=== PATIENT | male | born 1945 | race Caucasian/White ===

== ENCOUNTER → 2019-11-25 | Day surgery (SDC) | payer MEDICARE ==
--- NOTE | 2019-11-23 09:32 | Diagnostic Imaging Report ---
EXAMINATION: CHEST 2 VIEWS INDICATION: Pre-operative COMPARISON: None FINDINGS: LINES/TUBES:None LUNGS:The lungs are mildly hyperinflated. No focal consolidation or pulmonary edema. Unchanged mildly increased interstitial markings. PLEURA:No pleural effusion or pneumothorax. MEDIASTINUM:The cardiomediastinal silhouette appears unchanged in size and shape. Atherosclerotic calcifications of the thoracic aorta. BONES/SOFT TISSUES:No acute osseous injury. ABDOMEN:No free air under the diaphragm. IMPRESSION: Mildly hyperinflated lungs. No focal pneumonia or pulmonary edema. Signed by: Shadi Alcaraz MD on 11/23/2019 9:30 AM
[~2019-11-25] MED LIST: ACETAMINOPHEN 1000 MG/100 ML IV ONE; ASPIR 8181 MG PO; ASTAXANTHIN4 MG PO; ATORVASTATIN CA20 MG PO; AZELASTINE137 MCG/0.; BUPIVACAINE 0.5%/EPI 30 ML SDV INJ ONE; CEFAZOLIN SOD 1 GM/NS 50ML 100 ML IV ONE; CLARITIN-D 241 EACH PO; CLOPIDOGREL75 MG PO; DEXAMETHASONE SOD PHOS INJ 4 MG/ML VIAL ONE; EPHEDRINE SULFATE INJ 50 MG/ML VIAL ONE; FENTANYL CITRATE/PF 100MCG/2 ML INJ ONE; KETOROLAC TROMETHAMINE 30 MG/ML VIAL ONE; KRILL OIL500 MG PO; LIDOCAINE HCL 2% LOCAL INJ 5 ML SDV VIAL INJ ONE; MULTIVITAMINS1 EAC7 PO; MYRBETRIQ25 MG PO; NASACORT16.9 ML INH; ONDANSETRON HCL INJ 2MG/ML 2ML 2 MG/ML VIAL ONE; PEPCID20 MG PO; PROPOFOL IV EMULSION 10 MG/ML 20 ML VIAL ONE; QVAR REDIHALE10.6 G1 INH; SEVOFLURANE INHAL SOLN 250 ML PEN BTL ONE; VENTOLIN HFA18 GM INH
--- OUTSIDE RECORDS SUMMARY | 2019-11-25 05:55 | XMS REPORT ---
Author [facility] Address Unknown Phone Unavailable Care Team Providers Care Single Fold Machine Operator Name Role Phone YUDELKA DU Unavailable Unavailable Payers Payer Name Policy Type Policy Number Effective Date Expiration Date Problems This patient has no known problems. Allergies, Adverse Reactions, Alerts Allergy Name Allergy Type Status Severity Reaction(s) Onset Date Inactive Date Treating Clinician Comments No Known Allergies DA Active U 2018-09-28 00:00:00 Medications This patient has no known medications. Results Test Description Test Time Test Comments Text Results Atomic Results Result Comments CHEST 2 VIEWS 2019-11-23 09:28:00 [place] [address] Patient Name: SAMIA LUEVANO V MR #: [id number] : 1945 Age/Sex: 74/M Req #: [id number] Adm Physician: Ordered by: YUDELKA DU MD Report #: [id number] Location: OR Room/Bed: Procedure: [id number] DX/CHEST 2 VIEWS Exam Date: 11/23/19 Exam Time: 0850 REPORT STATUS: Signed EXAMINATION: CHEST 2 VIEWS INDICATION: Pre-operative COMPARISON: None FINDINGS: LINES/TUBES:None LUNGS:The lungs are mildly hyperinflated. No focal consolidation or pulmonary edema. Unchanged mildly increased interstitial markings. PLEURA:No pleural effusion or pneumothorax. MEDIASTINUM:The cardiomediastinal silhouette appears unchanged in size and shape. Atherosclerotic calcifications of the thoracic aorta. BONES/SOFT TISSUES:No acute osseous injury. ABDOMEN:No free air under the diaphragm. IMPRESSION: Mildly hyperinflated lungs. No focal pneumonia or pulmonary edema. Signed by: Pham Alcaraz MD on 11/23/2019 9:30 AM Dictated By: PHAM ALCARAZ MD 9 Transcribed By: CAROL on 11/23/19929 COPY TO: YUDELKA DU MD
--- NOTE | 2019-11-25 07:05 | NUR ---
SPIRITUAL CARE - Pre-Surgery Assessment: Pt in bed. Pt's at bedside. Pt reported supportive attention from family and friends. Intervention: I provided pastoral presence, hospitality, and sympathetic listening. I acquainted pt with availability of mortar man while hospitalized. Outcome: Pt expressed appreciation for visit. No need for follow up indicated at this time. LORAINE Colindreslain Spiritual Care Department O: [phone] Pager: [phone] ([phone] number calling from)
[2019-11-25 09:57] VITALS: BP 110/64
--- NOTE | 2019-11-28 00:42 | Operative Report ---
DATE OF PROCEDURE: 11/25/2019 SURGEON: Paul Adams MD PREOPERATIVE DIAGNOSES: Right knee medial meniscus tear, right knee degenerative joint disease. POSTOPERATIVE DIAGNOSES: Right knee medial meniscus tear, right knee lateral meniscus tear, right knee degenerative joint disease. OPERATIONS AND PROCEDURES PERFORMED: The patient underwent right knee examination under anesthesia, right knee arthroscopy, right knee partial medial meniscectomy, right knee partial lateral meniscectomy, right knee chondroplasty of the patella, the trochlea, the medial femoral condyle, medial tibial plateau, the lateral femoral condyle, the lateral tibial plateau. DEICER KIT ASSEMBLER: DAKSHA Michelle ANESTHESIA: General endotracheal intubation anesthesia. IV FLUIDS: Per the anesthesia record. BRIEF DESCRIPTION OF THE PATIENT'S OPERATIVE PROCEDURE: Mr. Herrera was taken to the operating room, placed in the supine position on the operating table. Following induction of general anesthesia as well as endotracheal intubation, the patient's right lower extremity was examined under anesthesia. He was found to have a mild effusion within the joint, but otherwise ligamentously stable knee. The patient's lower extremity was prepped and draped in standard surgical fashion. A two-port technique was used to provide this patient arthroscopic evaluation of the joint. Examination of suprapatellar pouch, medial and lateral gutters found no evidence of loose bodies. There was, however, evidence of chondromalacia of the patella and trochlear surfaces. The scope was advanced to medial compartment. Examination of the medial compartment demonstrated a torn medial meniscus. There was also chondromalacia of the articulating surfaces. The tear was noted to be at the posterior root and the undersurface of the posterior horn of the medial meniscus. A combination of biting forceps and motorized shaver was used to resect the torn portion of the meniscus. Chondroplasties of the medial femoral condyle and medial tibial plateau were performed at this time. Scope was advanced to the intercondylar notch and the anterior cruciate ligament was identified and found to be intact. Scope was advanced to lateral compartment and a lateral meniscal tear was identified. There was also chondromalacia of the articulating surfaces. A combination of biting forceps and motorized shaver was used to resect the torn portion of the meniscus. Chondroplasties of the lateral femoral condyle and lateral tibial plateau were performed at this time. Scope was advanced to patella pouch and chondroplasties of the patella and trochlea were performed. The knee was deflated with sterile normal saline. Each of the portal sites were closed using 4-0 nylon suture. The portal sites as well as knee itself were injected with 0.5% Marcaine with epinephrine. Sterile dressings were applied and the patient was awakened and taken to postanesthesia care unit in stable condition. MD AYLEEN Traylor/ERICK /[id number]
== END | disposition home or self-care (01) ==
LOC: OR 05:49
PROVIDERS: ATTEND Specialist
DX: S83.221A Peripheral tear of medial meniscus, current injury, right knee, initial encounter (principal); S83.281A Other tear of lateral meniscus, current injury, right knee, initial encounter; M17.11 Unilateral primary osteoarthritis, right knee; M22.41 Chondromalacia patellae, right knee; J44.9 Chronic obstructive pulmonary disease, unspecified; I65.29 Occlusion and stenosis of unspecified carotid artery; F17.210 Nicotine dependence, cigarettes, uncomplicated; X50.1XXA Overexertion from prolonged static or awkward postures, initial encounter; Y93.01 Activity, walking, marching and hiking; Z01.818 Encounter for other preprocedural examination; Z79.02 Long term (current) use of antithrombotics/antiplatelets; Z79.82 Long term (current) use of aspirin; Z86.73 Personal history of transient ischemic attack (TIA), and cerebral infarction without residual deficits
CPT/HCPCS: 29880; 71046; J0131; J0690; J1100; J1885; J2001; J2405; J2704; J3010